=== PATIENT | female | born 1945 | race Caucasian/White ===

== ENCOUNTER → 2016-10-10 | Outpatient (CLI) | payer MEDICARE, OTHER ==
[~2016-10-10] VITALS: Ht 166.4 cm; Wt 92.1 kg
[~2016-10-10] MED LIST: ADVAIR HFA 115-28 GM INH; ALBUTEROL0.63 MG/3 INH; ALDACTONE 25MG25 MG PO; ALLOPURINOL100 MG PO; AMLODIPINE BES2.5 MG PO; ANTIVERT 25MG T25 MG PO; BUMEX 1MG TABLET1 MG PO; CALCIUM 600 +1 EACH PO; COREG 25MG TAB25 MG PO; FERROUS SULFAT325 M2 PO; FISH OIL 1,0001 EAC5 PO; GLUCOSAMINE HC500 MG PO; HYDROCODON-ACE1 EAC1 PO; LIPITOR TAB 1010 MG PO; MIRALAX17 GM PO; NEURONTIN 300300 MG PO; NEXIUM40 MG PO; ORENCIA 250 MG250 MG INJ; PREDNISONE5 MG PO; PROAIR HFA8.5 GM INH; PROPAFENONE HC325 MG PO; RANITIDINE HCL300 MG PO; RESTASIS 0.05%1 EACH OD; SINGULAIR10 MG PO; SPIRIVA HANDIH18 MCG INH; VITAMIN B-121000 MC3 PO; XARELTO 15 MG T15 MG PO; XARELTO15 MG PO; ZANTAC 150 MG150 MG PO
[2016-10-10 10:14] LABS: HEMOGLOBIN 10.5 gm/dl (12.3-15.3); RED BLOOD COUNT 3.42 M/UL (4.00-5.10); WHITE BLOOD COUNT 4.5 K/UL (4.5-11.0)
== END ==
LOC: OPSV 09:23
PROVIDERS: Internal Medicine Cardiovascular Disease; Internal Medicine Rheumatology
DX: M06.9 Rheumatoid arthritis, unspecified (principal); I10 Essential (primary) hypertension; I25.10 Atherosclerotic heart disease of native coronary artery without angina pectoris; I48.91 Unspecified atrial fibrillation; R42 Dizziness and giddiness; R60.9 Edema, unspecified; R23.8 Other skin changes; R06.02 Shortness of breath; Z88.2 Allergy status to sulfonamides; Z88.1 Allergy status to other antibiotic agents; Z88.6 Allergy status to analgesic agent; Z88.5 Allergy status to narcotic agent; Z88.8 Allergy status to other drugs, medicaments and biological substances; Z91.040 Latex allergy status
CPT/HCPCS: 36415; 80053; 80061; 84439; 84443; 84481; 85025; 96365; J0129; J7050

== ENCOUNTER → 2016-10-21 | Outpatient (CLI) | payer MEDICARE, OTHER | LOC: KOH-I 15:30 | DX: I63.9 Cerebral infarction, unspecified (principal) | CPT/HCPCS: 70450 ==

== ENCOUNTER 2016-10-30 02:23 | Emergency (ER) | payer MEDICARE, OTHER ==
[~2016-10-30 02:23] MED LIST changes: -ADVAIR HFA 115-28 GM INH; -ALBUTEROL0.63 MG/3 INH; -ALDACTONE 25MG25 MG PO; -AMLODIPINE BES2.5 MG PO; -ANTIVERT 25MG T25 MG PO; -BUMEX 1MG TABLET1 MG PO; -CALCIUM 600 +1 EACH PO; -COREG 25MG TAB25 MG PO; -FERROUS SULFAT325 M2 PO; -GLUCOSAMINE HC500 MG PO; -HYDROCODON-ACE1 EAC1 PO; -LIPITOR TAB 1010 MG PO; -MIRALAX17 GM PO; -NEURONTIN 300300 MG PO; -NEXIUM40 MG PO; -ORENCIA 250 MG250 MG INJ; -PREDNISONE5 MG PO; -PROAIR HFA8.5 GM INH; -PROPAFENONE HC325 MG PO; -RANITIDINE HCL300 MG PO; -RESTASIS 0.05%1 EACH OD; -SINGULAIR10 MG PO; -SPIRIVA HANDIH18 MCG INH; -VITAMIN B-121000 MC3 PO; -XARELTO 15 MG T15 MG PO; -XARELTO15 MG PO; -ZANTAC 150 MG150 MG PO
[2016-10-30 02:49] LABS: HEMOGLOBIN 10.5 gm/dl (12.3-15.3); RED BLOOD COUNT 3.44 M/UL (4.00-5.10); WHITE BLOOD COUNT 7.6 K/UL (4.5-11.0)
[2017-02-10] MEDS ORDERED: RESTASIS 0.05%1 EACH OD (06:13)
[2017-02-10] MEDS ORDERED: RANITIDINE HCL300 MG PO (06:13)
[2017-02-10] MEDS ORDERED: GLUCOSAMINE HC500 MG PO (06:14)
[2017-02-10] MEDS ORDERED: ORENCIA 250 MG250 MG INJ (06:15)
[2017-02-10] MEDS ORDERED: COREG 25MG TAB25 MG PO (06:16)
[2017-02-10] MEDS ORDERED: ALBUTEROL0.63 MG/3 INH (06:16)
[2017-02-10] MEDS ORDERED: CALCIUM 600 +1 EACH PO (06:18)
[2017-02-10] MEDS ORDERED: AMLODIPINE BES2.5 MG PO (20:09)
[2017-02-11] MEDS ORDERED: XARELTO15 MG PO (13:00)
== END 2016-10-30 04:40 | disposition home or self-care (01) ==
LOC: ER1 02:23
PROVIDERS: Family Medicine
DX: M25.511 Pain in right shoulder (principal); R20.2 Paresthesia of skin; R79.1 Abnormal coagulation profile; I48.91 Unspecified atrial fibrillation; Z79.01 Long term (current) use of anticoagulants
CPT/HCPCS: 36415; 70450; 71010; 73030; 80053; 82550; 82553; 83874; 84484; 85025; 85610; 85730; 93005; 99284

== ENCOUNTER → 2016-11-11 | Outpatient (CLI) | payer MEDICARE, OTHER ==
[~2016-11-11] MED LIST changes: +ADVAIR HFA 115-28 GM INH; +ALBUTEROL0.63 MG/3 INH; +ALDACTONE 25MG25 MG PO; +AMLODIPINE BES2.5 MG PO; +ANTIVERT 25MG T25 MG PO; +BUMEX 1MG TABLET1 MG PO; +CALCIUM 600 +1 EACH PO; +COREG 25MG TAB25 MG PO; +FERROUS SULFAT325 M2 PO; +GLUCOSAMINE HC500 MG PO; +HYDROCODON-ACE1 EAC1 PO; +LIPITOR TAB 1010 MG PO; +MIRALAX17 GM PO; +NEURONTIN 300300 MG PO; +NEXIUM40 MG PO; +ORENCIA 250 MG250 MG INJ; +PREDNISONE5 MG PO; +PROAIR HFA8.5 GM INH; +PROPAFENONE HC325 MG PO; +RANITIDINE HCL300 MG PO; +RESTASIS 0.05%1 EACH OD; +SINGULAIR10 MG PO; +SPIRIVA HANDIH18 MCG INH; +VITAMIN B-121000 MC3 PO; +XARELTO 15 MG T15 MG PO; +XARELTO15 MG PO; +ZANTAC 150 MG150 MG PO
[2016-11-11 09:51] LABS: HEMOGLOBIN 9.9 gm/dl (12.3-15.3); RED BLOOD COUNT 3.3 M/UL (4.00-5.10); WHITE BLOOD COUNT 4.7 K/UL (4.5-11.0)
== END ==
LOC: OPSV 11-07 10:00
PROVIDERS: Internal Medicine Rheumatology
DX: M06.9 Rheumatoid arthritis, unspecified (principal)
CPT/HCPCS: 36415; 80053; 85027; 96365; J0129; J7050

== ENCOUNTER 2016-11-24 03:47 | Emergency (ER) | payer MEDICARE, OTHER ==
[~2016-11-24 03:47] MED LIST changes: -ADVAIR HFA 115-28 GM INH; -ALBUTEROL0.63 MG/3 INH; -ALDACTONE 25MG25 MG PO; -AMLODIPINE BES2.5 MG PO; -ANTIVERT 25MG T25 MG PO; -BUMEX 1MG TABLET1 MG PO; -CALCIUM 600 +1 EACH PO; -COREG 25MG TAB25 MG PO; -FERROUS SULFAT325 M2 PO; -GLUCOSAMINE HC500 MG PO; -HYDROCODON-ACE1 EAC1 PO; -LIPITOR TAB 1010 MG PO; -MIRALAX17 GM PO; -NEURONTIN 300300 MG PO; -NEXIUM40 MG PO; -ORENCIA 250 MG250 MG INJ; -PREDNISONE5 MG PO; -PROAIR HFA8.5 GM INH; -PROPAFENONE HC325 MG PO; -RANITIDINE HCL300 MG PO; -RESTASIS 0.05%1 EACH OD; -SINGULAIR10 MG PO; -SPIRIVA HANDIH18 MCG INH; -VITAMIN B-121000 MC3 PO; -XARELTO 15 MG T15 MG PO; -XARELTO15 MG PO; -ZANTAC 150 MG150 MG PO
[2016-11-24 04:24] LABS: RED BLOOD COUNT 3.58 M/UL (4.00-5.10); WHITE BLOOD COUNT 7.3 K/UL (4.5-11.0)
[2017-02-10] MEDS ORDERED: RANITIDINE HCL300 MG PO (06:13)
[2017-02-10] MEDS ORDERED: RESTASIS 0.05%1 EACH OD (06:13)
[2017-02-10] MEDS ORDERED: GLUCOSAMINE HC500 MG PO (06:14)
[2017-02-10] MEDS ORDERED: ORENCIA 250 MG250 MG INJ (06:15)
[2017-02-10] MEDS ORDERED: COREG 25MG TAB25 MG PO (06:16)
[2017-02-10] MEDS ORDERED: ALBUTEROL0.63 MG/3 INH (06:16)
[2017-02-10] MEDS ORDERED: CALCIUM 600 +1 EACH PO (06:18)
[2017-02-10] MEDS ORDERED: AMLODIPINE BES2.5 MG PO (20:09)
[2017-02-11] MEDS ORDERED: XARELTO15 MG PO (13:00)
== END 2016-11-24 09:12 | disposition home or self-care (01) ==
LOC: ER1 03:47
PROVIDERS: Student in an Organized Health Care Education/Training Program
DX: S46.001A Unspecified injury of muscle(s) and tendon(s) of the rotator cuff of right shoulder, initial encounter (principal); S09.90XA Unspecified injury of head, initial encounter; E87.5 Hyperkalemia; N17.9 Acute kidney failure, unspecified; I13.10 Hypertensive heart and chronic kidney disease without heart failure, with stage 1 through stage 4 chronic kidney disease, or unspecified chronic kidney disease; N18.9 Chronic kidney disease, unspecified; N39.0 Urinary tract infection, site not specified; J44.9 Chronic obstructive pulmonary disease, unspecified; I48.91 Unspecified atrial fibrillation; Z95.0 Presence of cardiac pacemaker; W18.30XA Fall on same level, unspecified, initial encounter
CPT/HCPCS: 36415; 70450; 71010; 72125; 73030; 80048; 80053; 81001; 82550; 82553; 83874; 83880; 84484; 85025; 85610; 85730; 87086; 93005; 94664; 96365; 96372; 96375; 99284; J0610; J1815; J7040; J7050

== ENCOUNTER → 2016-11-27 | Outpatient (CLI) | payer MEDICARE, OTHER ==
[~2016-11-27] MED LIST changes: +ADVAIR HFA 115-28 GM INH; +ALBUTEROL0.63 MG/3 INH; +ALDACTONE 25MG25 MG PO; +AMLODIPINE BES2.5 MG PO; +ANTIVERT 25MG T25 MG PO; +BUMEX 1MG TABLET1 MG PO; +CALCIUM 600 +1 EACH PO; +COREG 25MG TAB25 MG PO; +FERROUS SULFAT325 M2 PO; +GLUCOSAMINE HC500 MG PO; +HYDROCODON-ACE1 EAC1 PO; +LIPITOR TAB 1010 MG PO; +MIRALAX17 GM PO; +NEURONTIN 300300 MG PO; +NEXIUM40 MG PO; +ORENCIA 250 MG250 MG INJ; +PREDNISONE5 MG PO; +PROAIR HFA8.5 GM INH; +PROPAFENONE HC325 MG PO; +RANITIDINE HCL300 MG PO; +RESTASIS 0.05%1 EACH OD; +SINGULAIR10 MG PO; +SPIRIVA HANDIH18 MCG INH; +VITAMIN B-121000 MC3 PO; +XARELTO 15 MG T15 MG PO; +XARELTO15 MG PO; +ZANTAC 150 MG150 MG PO
== END ==
LOC: KOH-I 11:30
DX: S39.92XA Unspecified injury of lower back, initial encounter (principal); M47.818 Spondylosis without myelopathy or radiculopathy, sacral and sacrococcygeal region
CPT/HCPCS: 72220

== ENCOUNTER 2016-11-28 12:33 | Observation (INO) | payer MEDICARE, OTHER ==
[~2016-11-28] VITALS: Ht 168.9 cm; Wt 90.7 kg
[~2016-11-28 12:33] MED LIST changes: -ADVAIR HFA 115-28 GM INH; -ALBUTEROL0.63 MG/3 INH; -ALDACTONE 25MG25 MG PO; -AMLODIPINE BES2.5 MG PO; -ANTIVERT 25MG T25 MG PO; -BUMEX 1MG TABLET1 MG PO; -CALCIUM 600 +1 EACH PO; -COREG 25MG TAB25 MG PO; -FERROUS SULFAT325 M2 PO; -GLUCOSAMINE HC500 MG PO; -HYDROCODON-ACE1 EAC1 PO; -LIPITOR TAB 1010 MG PO; -MIRALAX17 GM PO; -NEURONTIN 300300 MG PO; -NEXIUM40 MG PO; -ORENCIA 250 MG250 MG INJ; -PREDNISONE5 MG PO; -PROAIR HFA8.5 GM INH; -PROPAFENONE HC325 MG PO; -RANITIDINE HCL300 MG PO; -RESTASIS 0.05%1 EACH OD; -SINGULAIR10 MG PO; -SPIRIVA HANDIH18 MCG INH; -VITAMIN B-121000 MC3 PO; -XARELTO 15 MG T15 MG PO; -XARELTO15 MG PO; -ZANTAC 150 MG150 MG PO
[2016-11-28 14:04] LABS: HEMOGLOBIN 10.9 gm/dl (12.3-15.3); RED BLOOD COUNT 3.57 M/UL (4.00-5.10); WHITE BLOOD COUNT 6.9 K/UL (4.5-11.0)
[2016-11-28] MEDS ORDERED: PREDNISONE5 MG PO (19:51)
[2016-11-28] MEDS ORDERED: XARELTO 15 MG T15 MG PO (19:51)
[2016-11-28] MEDS ORDERED: PROPAFENONE HC325 MG PO (19:52)
[2016-11-28] MEDS ORDERED: PROAIR HFA8.5 GM INH (19:53)
[2016-11-28] MEDS ORDERED: NEXIUM40 MG PO (19:54)
[2016-11-28] MEDS ORDERED: SINGULAIR10 MG PO (19:54)
[2016-11-28] MEDS ORDERED: MIRALAX17 GM PO (19:55)
[2016-11-28] MEDS ORDERED: ANTIVERT 25MG T25 MG PO (19:55)
[2016-11-28] MEDS ORDERED: HYDROCODON-ACE1 EAC1 PO (19:56)
[2016-11-28] MEDS ORDERED: COREG 25MG TAB25 MG PO (19:57)
[2016-11-28] MEDS ORDERED: NEURONTIN 300300 MG PO (19:57)
[2016-11-28] MEDS ORDERED: FERROUS SULFAT325 M2 PO (19:57)
[2016-11-28] MEDS ORDERED: ALDACTONE 25MG25 MG PO (19:58)
[2016-11-28] MEDS ORDERED: LIPITOR TAB 1010 MG PO (19:58)
[2016-11-28] MEDS ORDERED: BUMEX 1MG TABLET1 MG PO (19:59)
[2016-11-28] MEDS ORDERED: ZANTAC 150 MG150 MG PO (19:59)
[2016-11-28] MEDS ORDERED: ADVAIR HFA 115-28 GM INH (20:02)
[2016-11-28] MEDS ORDERED: SPIRIVA HANDIH18 MCG INH (20:03)
[2016-11-28] MEDS ORDERED: ALBUTEROL0.63 MG/3 INH (20:04)
[2016-11-28] MEDS ORDERED: VITAMIN B-121000 MC3 PO (20:07)
[2016-11-29 03:10] LABS: RED BLOOD COUNT 3.28 M/UL (4.00-5.10); WHITE BLOOD COUNT 6.2 K/UL (4.5-11.0)
[2017-02-10] MEDS ORDERED: RANITIDINE HCL300 MG PO (06:13)
[2017-02-10] MEDS ORDERED: RESTASIS 0.05%1 EACH OD (06:13)
[2017-02-10] MEDS ORDERED: GLUCOSAMINE HC500 MG PO (06:14)
[2017-02-10] MEDS ORDERED: ORENCIA 250 MG250 MG INJ (06:15)
[2017-02-10] MEDS ORDERED: COREG 25MG TAB25 MG PO (06:16)
[2017-02-10] MEDS ORDERED: ALBUTEROL0.63 MG/3 INH (06:16)
[2017-02-10] MEDS ORDERED: CALCIUM 600 +1 EACH PO (06:18)
[2017-02-10] MEDS ORDERED: AMLODIPINE BES2.5 MG PO (20:09)
[2017-02-11] MEDS ORDERED: XARELTO15 MG PO (13:00)
== END 2016-11-29 18:40 | disposition home or self-care (01) ==
LOC: ER1 12:33 → ZEROF 16:00 → MED SURG 4 18:19
PROVIDERS: Emergency Medicine; ADMIT Internal Medicine Infectious Disease
DX: E87.5 Hyperkalemia (principal); N18.3 Chronic kidney disease, stage 3 (moderate); K59.00 Constipation, unspecified; N30.00 Acute cystitis without hematuria; I13.0 Hypertensive heart and chronic kidney disease with heart failure and stage 1 through stage 4 chronic kidney disease, or unspecified chronic kidney disease; I50.9 Heart failure, unspecified; I25.10 Atherosclerotic heart disease of native coronary artery without angina pectoris; E78.5 Hyperlipidemia, unspecified; M06.9 Rheumatoid arthritis, unspecified; M10.9 Gout, unspecified; I48.91 Unspecified atrial fibrillation; J47.9 Bronchiectasis, uncomplicated; G47.33 Obstructive sleep apnea (adult) (pediatric); Z79.01 Long term (current) use of anticoagulants; Z79.891 Long term (current) use of opiate analgesic; Z79.899 Other long term (current) drug therapy; Z95.810 Presence of automatic (implantable) cardiac defibrillator; Z86.73 Personal history of transient ischemic attack (TIA), and cerebral infarction without residual deficits; Z90.49 Acquired absence of other specified parts of digestive tract; Z90.710 Acquired absence of both cervix and uterus; Z98.41 Cataract extraction status, right eye; Z98.42 Cataract extraction status, left eye; Z85.828 Personal history of other malignant neoplasm of skin; Z79.82 Long term (current) use of aspirin; Z86.2 Personal history of diseases of the blood and blood-forming organs and certain disorders involving the immune mechanism
CPT/HCPCS: 36415; 71010; 80048; 80053; 81001; 82550; 82553; 83735; 83874; 84484; 85025; 85610; 85730; 93005; 94640; 94660; 94664; 96365; 96375; 99285; G0378; J7030

== ENCOUNTER → 2016-12-04 | Outpatient (CLI) | payer MEDICARE, OTHER ==
[~2016-12-04] MED LIST changes: +ADVAIR HFA 115-28 GM INH; +ALBUTEROL0.63 MG/3 INH; +ALDACTONE 25MG25 MG PO; +AMLODIPINE BES2.5 MG PO; +ANTIVERT 25MG T25 MG PO; +BUMEX 1MG TABLET1 MG PO; +CALCIUM 600 +1 EACH PO; +COREG 25MG TAB25 MG PO; +FERROUS SULFAT325 M2 PO; +GLUCOSAMINE HC500 MG PO; +HYDROCODON-ACE1 EAC1 PO; +LIPITOR TAB 1010 MG PO; +MIRALAX17 GM PO; +NEURONTIN 300300 MG PO; +NEXIUM40 MG PO; +ORENCIA 250 MG250 MG INJ; +PREDNISONE5 MG PO; +PROAIR HFA8.5 GM INH; +PROPAFENONE HC325 MG PO; +RANITIDINE HCL300 MG PO; +RESTASIS 0.05%1 EACH OD; +SINGULAIR10 MG PO; +SPIRIVA HANDIH18 MCG INH; +VITAMIN B-121000 MC3 PO; +XARELTO 15 MG T15 MG PO; +XARELTO15 MG PO; +ZANTAC 150 MG150 MG PO
== END ==
LOC: LAB 12:05
PROVIDERS: Internal Medicine Infectious Disease
DX: E87.5 Hyperkalemia (principal)
CPT/HCPCS: 36415; 80048

== ENCOUNTER → 2017-01-16 | Outpatient (CLI) | payer MEDICARE, OTHER ==
[~2017-01-16] VITALS: Ht 166.4 cm; Wt 92.1 kg
[2017-01-16 09:40] LABS: HEMOGLOBIN 10.4 gm/dl (12.3-15.3); RED BLOOD COUNT 3.42 M/UL (4.00-5.10); WHITE BLOOD COUNT 5.5 K/UL (4.5-11.0)
== END ==
LOC: OPSV 01-09 09:00
PROVIDERS: Internal Medicine Rheumatology
DX: M06.9 Rheumatoid arthritis, unspecified (principal)
CPT/HCPCS: 36415; 80053; 85027; 96365; J0129; J7050

== ENCOUNTER 2017-01-18 01:39 | Emergency (ER) | payer MEDICARE, OTHER ==
[~2017-01-18 01:39] MED LIST changes: -AMLODIPINE BES2.5 MG PO; -CALCIUM 600 +1 EACH PO; -GLUCOSAMINE HC500 MG PO; -ORENCIA 250 MG250 MG INJ; -RANITIDINE HCL300 MG PO; -RESTASIS 0.05%1 EACH OD; -XARELTO15 MG PO
[2017-01-18 02:24] LABS: HEMOGLOBIN 10.3 gm/dl (12.3-15.3); RED BLOOD COUNT 3.44 M/UL (4.00-5.10); WHITE BLOOD COUNT 5.3 K/UL (4.5-11.0)
[2017-02-10] MEDS ORDERED: RANITIDINE HCL300 MG PO (06:13)
[2017-02-10] MEDS ORDERED: RESTASIS 0.05%1 EACH OD (06:13)
[2017-02-10] MEDS ORDERED: GLUCOSAMINE HC500 MG PO (06:14)
[2017-02-10] MEDS ORDERED: ORENCIA 250 MG250 MG INJ (06:15)
[2017-02-10] MEDS ORDERED: ALBUTEROL0.63 MG/3 INH (06:16)
[2017-02-10] MEDS ORDERED: COREG 25MG TAB25 MG PO (06:16)
[2017-02-10] MEDS ORDERED: CALCIUM 600 +1 EACH PO (06:18)
[2017-02-10] MEDS ORDERED: AMLODIPINE BES2.5 MG PO (20:09)
[2017-02-11] MEDS ORDERED: XARELTO15 MG PO (13:00)
== END 2017-01-18 07:10 | disposition home or self-care (01) ==
LOC: ER1 01:39
PROVIDERS: Student in an Organized Health Care Education/Training Program
DX: J32.9 Chronic sinusitis, unspecified (principal); I12.9 Hypertensive chronic kidney disease with stage 1 through stage 4 chronic kidney disease, or unspecified chronic kidney disease; N18.9 Chronic kidney disease, unspecified; J44.9 Chronic obstructive pulmonary disease, unspecified; I48.91 Unspecified atrial fibrillation; E78.5 Hyperlipidemia, unspecified; Z95.810 Presence of automatic (implantable) cardiac defibrillator; Z79.01 Long term (current) use of anticoagulants; Z79.52 Long term (current) use of systemic steroids; Z79.899 Other long term (current) drug therapy
CPT/HCPCS: 36415; 70450; 71010; 80053; 81001; 82550; 82553; 83874; 84484; 85025; 87086; 93005; 96374; 99284; J1200; J2765; J7050